=== PATIENT | male | born 1980 | race Caucasian/White ===

== ENCOUNTER 2023-08-28 11:11 | Emergency (ER) | payer OTHER, SELFPAY ==
[2023-08-28 11:13] VITALS: BP 130/86
[2023-08-28 11:37] VITALS: BP 114/79
[2023-08-28 12:00] VITALS: BP 138/110
[2023-08-28 12:19] LABS: % Basophils 0.9 % (0-2); % Eosinophils 1.4 % (0-6); % Immature Granulocytes 0.3 % (0-0.5); % Lymphocytes 32.5 % (20.5-51.1); % Monocytes 7.4 % (1.7-9.3); % Neutrophils 57.5 % (42.2-75.2); Absolute Basophils 0.1 10^3/uL (0-0.2); Absolute Eosinophils 0.1 10^3/uL (0-0.7); Absolute Lymphocytes 2.6 10^3/uL (1.2-3.4); Absolute Monocytes 0.6 10^3/uL (0.1-0.6); Absolute Neutrophils 4.6 10^3/uL (1.4-6.5); Hematocrit 48.4 % (39.0-52.0); Hemoglobin 16.2 g/dL (13.0-18.0); Mean Corp Hgb Conc. 33.5 g/dL (33.0-37.0); Mean Corpuscular Hgb 28.4 pg (27.0-31.0); Mean Corpuscular Volume 84.9 fL (80.0-94.0); Nucleated Red Blood Cells % 0 % (-); Platelet Count 289 10^3/uL (130-400); Red Cell Dist. Width 13.8 % (11.5-14.5); White Blood Cell Count 7.9 10^3/uL (4.8-10.8)
[2023-08-28 12:32] LABS: ALT (SGPT) 31 U/L (0-50); AST (SGOT) 28 U/L (17-59); Albumin 4.6 g/dl (3.5-5.0); Alkaline Phosphatase 72 U/L (38-126); Blood Urea Nitrogen 19 mg/dl (9-20); Calcium 9.5 mg/dl (8.4-10.2); Carbon Dioxide 27 mmol/L (22-30); Chloride 105 mmol/L (98-107); Glucose 93 mg/dl (70-99); Lipase 97 U/L (23-300); Potassium 4.7 mmol/L (3.5-5.1); Sodium 137 mmol/L (135-145); Total Bilirubin 0.8 mg/dl (0.2-1.3); Total Protein 7.2 g/dl (6.3-8.2); eGFR > 60.00
--- NOTE | 2023-08-28 12:34 | ED.GENMED ---
History of Present Illness
General
Chief Complaint: Abdominal Pain
Time Seen by Provider: 08/28/23 11:24
Travel History
Have you had any contact with someone who has COVID-19?: No
Do you have any symptoms of coronavirus? Fever > 100 degrees, chills, cough, shortness of breath, sore throat, loss of taste or smell, muscle aches, or headache?: No
History of Present Illness
History of Present Illness:
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 Reports periumbilical pain rating to the suprapubic region. Reports nausea and headache but no
vomiting or diarrhea. Appetite has been normal. No reported fevers, chills, sweats, back pain, or lower urinary tract voiding symptoms.
Past History
Past History
ED Past Medical History: Other (eczema)
ED Past Surgical History: Orthopedic
Social History
Tobacco: Smoker
Alcohol: None
Drug: None
Personal:
Living: with family
Employment: Employed
Family History
Family History: Other (no hx of DVT PE)
Review of Systems
Review of Systems
Allergies reviewed?: Yes
All Other Systems: ROS reviewed and negative except as documented in HPI and ROS
Phy Exam
Physical Exam
Physical Exam:
GEN: Well appearing, NAD, WDWN
HEENT: Oral mucosa moist, no scleral icterus
Cardiac: Regular rate
Lung: No respiratory distress, no tachypnea
Abdomen: Soft, nontender, no rigidity, exam limited by obese body habitus
MSK: No gross deformity or injuries
Skin: Good color, no pallor or jaundice, no rashes
Neuro: AO x3, moves all extremities freely
Psych: Calm, cooperative
Course
Orders/Labs/Results
Orders:
Orders
08/28/23 11:56
CT Abd/Pel (IV only)-[facility] only Urgent
Comment:
Reason For Exam: suprapubic pain
08/28/23 12:08
Complete Blood Count/With Diff Urgent
Comprehensive Metabolic Panel Urgent
Lipase Urgent
08/28/23 13:04
Urinalysis Reflex To Culture Urgent
Date Specimen was Collected: 08/28/23
Time Specimen was Collected: 12:06
Abnormal Lab Results
08/28/23
12:08
MPV 11.0 H fL
(7.4-10.4)
08/28/23 12:08
08/28/23 12:08
Vital Signs
Initial and Last Documented VS:
Initial Vital Signs
Temp Pulse Resp BP Pulse Ox
98.1 F 69 18 130/86 100
08/28/23 11:13 08/28/23 11:13 08/28/23 11:13 08/28/23 11:13 08/28/23 11:13
Last Documented Vital Signs
Temp Pulse Resp BP Pulse Ox
98.1 F 60 14 123/79 99
08/28/23 11:13 08/28/23 13:56 08/28/23 12:15 08/28/23 13:56 08/28/23 12:15
MDM/Problems Addressed
MDM/Problems Addressed:
43-year-old male presents with lower abdominal pain. Although his exam is quite benign, I cannot discount the symptoms without imaging thus a CT was obtained to rule out possibility of acute appendicitis. CT was obtained showing no evidence for
acute abdominal pathology. Discussed supportive care and return parameters with the patient.
*Critical Care Note
Total Time (30-74mins, 75-104mins- exclusive of procedures): Not Applicable
ED Attending Note
-
Portions of this chart may have been created with voice recognition software.� Occasional wrong word or��sound alike� substitutions may have occurred due to the inherent limitations of voice recognition software.
Discharge Plan
Departure
Patient Disposition: Home (Routine Discharge)
Date of Disposition: 08/28/23
Time of Disposition: 13:38
Patient with high blood pressure during this ER visit?: No
Discharge Problem:
Abdominal pain, lower
Instructions: Abdominal Pain
Prescriptions:
No Action
buprenorphine-naloxone 1 TAB tablet, sublingual
1 ea sublingual DAILY
furosemide [Lasix] 20 MG tablet
20 mg PO DAILY Qty: 3 0RF
clindamycin HCl 300 MG capsule
300 mg PO TID Qty: 20 0RF
amoxicillin-pot clavulanate 1 TABLET tablet
1 tab PO Q12 Qty: 14 0RF
mometasone [Nasonex 24hr Allergy] 50 mcg/actuation spray,non-aerosol
2 spray intranasal DAILY Qty: 17 0RF
pseudoephedrine HCl 30 mg tablet
30 mg PO BID PRN (Reason: nasal congestion) Qty: 15 0RF
Referrals:
NONE,* [Family Provider] -
Activity Restrictions/Additional Instructions:
Your CT scan shows no evidence for acute appendicitis or other problems that are causing your acute pain. Incidentally it is noted that you have 2 benign cyst on the right kidney, these do appear enlarged compared to prior CAT scans however they
are not likely malignant. Please follow-up with your primary care physician for a nonurgent follow-up ultrasound at some point in the next 6 to 12 months to reassess these
Interventions
Interventions:
*Risk Screen - Suicide Last Done: 08/28/23 11:15
*General Assessment Last Done: 08/28/23 11:15
*Neglect/Abuse Screening Last Done: 08/28/23 11:15
*ED COVID-19 Vaccine History Last Done: 08/28/23 11:15
*Nursing Disposition Last Done: 08/28/23 13:56
NR-Rqarlc-Yckwgfdifo Assessment Last Done: 08/28/23 12:48
Discharge Date and Time
Discharge Date/Time: 08/28/23 13:56
[2023-08-28 13:21] LABS: Urine Albumin Negative (Neg - Trace); Urine Bilirubin Negative (Negative); Urine Character Clear (Clear); Urine Color Yellow; Urine Glucose Negative (Negative); Urine Ketone Negative (Negative); Urine Leukocyte Negative (Negative); Urine Nitrite Negative (Negative); Urine Occult Blood Negative (Negative); Urine Specific Gravity 1.025 (<1.030); Urine Urobilinogen Negative (Neg - 1+)
[2023-08-28 13:35] VITALS: BP 123/79
[2023-08-28 13:56] VITALS: BP 123/79
== END 2023-08-28 13:56 | disposition home or self-care (01) ==
LOC: EMR 11:11
PROVIDERS: Physician Assistant; EMERGENCY PHYSICIAN Emergency Medicine
DX: R10.30 Lower abdominal pain, unspecified (principal); R11.0 Nausea; R51.9 Headache, unspecified; F17.200 Nicotine dependence, unspecified, uncomplicated
CPT/HCPCS: 99284; 74177; 80053; 81003; 83690; 85025; Q9967